=== PATIENT | female | born 1945 | race Caucasian/White ===

== ENCOUNTER 2017-11-08 01:16 | Emergency (ER) | payer MEDICARE, MEDICAID ==
[~2017-11-08] VITALS: Ht 162.6 cm; Wt 79.4 kg
[~2017-11-08 01:16] MED LIST: CHANTIX1 MG PO; DESYREL50 MG PO; LANTUS; LEVOXYL75 MCG PO; LOPRESSOR25 PO; NEXIUM20 M1 PO; NORTRIPTYLINE H25 M3 PO; NORTRIPTYLINE H75 M1 PO; NOVOLOG FLEX PEN; OXYGEN; SPIRIVA INH; SYMBICORT80 MCG/4.1 PO; XANAX 0.5 MG0.5 M1 PO; ZOCOR 20 MG TAB20 M1 PO
[2017-11-08 03:00] VITALS: BP 176/80
[2017-11-08] MEDS ORDERED: LASIX 40 MG TAB40 M2 PO (19:23)
[2017-11-08] MEDS ORDERED: PREDNISONE 20 M20 MG PO (19:24)
[2017-11-08] MEDS ORDERED: HYDROCODONE-AP1 EAC6 (19:24)
[2017-11-08] MEDS ORDERED: VENTOLIN HFA 1818 GM INH (21:19)
[2017-11-08] MEDS ORDERED: ASPIR 8181 MG PO (21:20)
[2017-11-08] MEDS ORDERED: IRON325 PO (21:21)
[2017-11-08] MEDS ORDERED: FLONASE 0.05%50 MCG SPRAY (21:23)
[2017-11-08] MEDS ORDERED: NORCO 10-325 T1 EACH PO (21:24)
[2017-11-08] MEDS ORDERED: CLARITIN10 MG PO (21:26)
[2017-11-08] MEDS ORDERED: LEVO-T88 MCG PO (21:26)
[2017-11-08] MEDS ORDERED: LUTEIN6 MG PO (21:26)
[2017-11-08] MEDS ORDERED: MAG6464 MG PO (21:28)
[2017-11-08] MEDS ORDERED: SINGULAIR 10 MG10 M1 PO (21:43)
[2017-11-08] MEDS ORDERED: ONDANSETRON HCL4 M2 PO (21:44)
[2017-11-08] MEDS ORDERED: POTASSIUM20 PO (21:45)
[2017-11-08] MEDS ORDERED: MIRAPEX ER4.5 MG PO (21:46)
[2017-11-08] MEDS ORDERED: FLOMAX0.4 MG PO (21:47)
[2017-11-08] MEDS ORDERED: ALDACTONE50 MG PO (21:47)
[2017-11-08] MEDS ORDERED: CARAFATE 1 GM TA1 G1 PO (21:49)
[2017-11-08] MEDS ORDERED: LEVEMIR SUBQ (21:56)
[2017-11-08] MEDS ORDERED: NOVOLOG100 UNIT/1 SUBQ (21:58)
[2017-11-08] MEDS ORDERED: HUMULIN N100 UNIT/1 SUBQ (22:01)
== END 2017-11-08 03:00 | disposition home or self-care (01) ==
LOC: M.ERS 01:16
DX: G89.29 Other chronic pain (principal); M54.9 Dorsalgia, unspecified; F41.9 Anxiety disorder, unspecified; I50.9 Heart failure, unspecified; J44.9 Chronic obstructive pulmonary disease, unspecified; E11.9 Type 2 diabetes mellitus without complications; K74.60 Unspecified cirrhosis of liver; Z90.49 Acquired absence of other specified parts of digestive tract; Z90.711 Acquired absence of uterus with remaining cervical stump; Z88.8 Allergy status to other drugs, medicaments and biological substances

== ENCOUNTER 2017-11-08 19:09 | Inpatient (IN) | payer MEDICARE, MEDICAID ==
[~2017-11-08] VITALS: Ht 162.6 cm; Wt 83.9 kg
[2017-11-08 19:10] VITALS: BP 156/79
[2017-11-08] MEDS ORDERED: LASIX 40 MG TAB40 M2 PO (19:23)
[2017-11-08] MEDS ORDERED: HYDROCODONE-AP1 EAC6 (19:24)
[2017-11-08] MEDS ORDERED: PREDNISONE 20 M20 MG PO (19:24)
[2017-11-08 20:06] LABS: APTT 26.1 Seconds (25.0-31.3); INR 1.1; PROTIME 10.7 Seconds (9.20-11.50)
[2017-11-08 20:32] LABS: HEMATOCRIT 35.8 % (37.0-47.0); HEMOGLOBIN 10.3 gm/dL (12.0-15.0); MCH 20.7 pg (26.0-34.0); MCHC 28.9 g/dL (28.0-37.0); MCV 71.6 fL (80.0-100.0); MPV 8.6 fl. (7.2-11.1); NUCLEATED RBCS 0 /100WBC; PLATELET COUNT* 173 thou/uL (150-400); RBC 4.99 mil/uL (4.20-5.00); RDW-CV 16.4 % (10.5-14.5); WBC 11.5 thou/uL (4.0-11.0)
[2017-11-08 20:50] LABS: BE 6.1 mmol/L (-2 to +3); HCO3 32.2 mmol/L (22.0-26.0); pH 7.393 (7.340-7.450)
[2017-11-08 20:51] LABS: PO2 56.2 mmHg (75.0-100.0)
[2017-11-08 20:55] LABS: POTASSIUM 5.8 mmol/L (3.5-5.1)
[2017-11-08 20:57] LABS: CALCIUM 8.7 mg/dL (8.5-10.1); CREATININE 2.1 mg/dL (0.6-1.3)
[2017-11-08 21:01] LABS: ALBUMIN 4.3 g/dL (3.4-5.0); MAGNESIUM 2.5 mg/dL (1.8-2.4); TOTAL BILIRUBIN 0.7 mg/dL (<0.1-1.0); TOTAL PROTEIN 7.5 g/dL (6.4-8.2); TROPONIN-I LEVEL 0.19 ng/mL (<0.06)
[2017-11-08 21:09] LABS: ABSOLUTE LYMPHOCYTES 1.4 thou/uL (0.8-5.3); ABSOLUTE MONOCYTES 0.5 thou/uL (0.0-1.2); ABSOLUTE NEUTROPHILS 9.7 thou/uL (1.6-8.1); PLATELET ESTIMATE ADEQUATE
[2017-11-08 21:14] LABS: OVALOCYTES Occasional
[2017-11-08 21:16] LABS: MICROCYTES 2+
[2017-11-08 21:19] LABS: HYPOCHROMASIA Occasional
[2017-11-08] MEDS ORDERED: VENTOLIN HFA 1818 GM INH (21:19)
[2017-11-08] MEDS ORDERED: ASPIR 8181 MG PO (21:20)
[2017-11-08] MEDS ORDERED: IRON325 PO (21:21)
[2017-11-08] MEDS ORDERED: FLONASE 0.05%50 MCG SPRAY (21:23)
[2017-11-08] MEDS ORDERED: NORCO 10-325 T1 EACH PO (21:24)
[2017-11-08] MEDS ORDERED: LEVO-T88 MCG PO (21:26)
[2017-11-08] MEDS ORDERED: CLARITIN10 MG PO (21:26)
[2017-11-08] MEDS ORDERED: LUTEIN6 MG PO (21:26)
[2017-11-08] MEDS ORDERED: MAG6464 MG PO (21:28)
[2017-11-08] MEDS ORDERED: SINGULAIR 10 MG10 M1 PO (21:43)
[2017-11-08] MEDS ORDERED: ONDANSETRON HCL4 M2 PO (21:44)
[2017-11-08] MEDS ORDERED: POTASSIUM20 PO (21:45)
[2017-11-08] MEDS ORDERED: MIRAPEX ER4.5 MG PO (21:46)
[2017-11-08] MEDS ORDERED: ALDACTONE50 MG PO (21:47)
[2017-11-08] MEDS ORDERED: FLOMAX0.4 MG PO (21:47)
[2017-11-08 21:48] LABS: URINE BILIRUBIN NEGATIVE (Negative); URINE BLOOD 3+ (Negative); URINE CLARITY SL CLOUDY; URINE COLOR YELLOW; URINE GLUCOSE-RANDOM NEGATIVE (Negative); URINE KETONES NEGATIVE (Negative); URINE NITRITE-REFLEX NEGATIVE (Negative); URINE PROTEIN 2+ (Negative); URINE UROBILINOGEN 0.2 E.U./dl (0.2-1.0)
[2017-11-08] MEDS ORDERED: CARAFATE 1 GM TA1 G1 PO (21:49)
[2017-11-08 21:52] LABS: URINE LEUKOCYTES-REFLEX 2+ (Negative)
[2017-11-08] MEDS ORDERED: LEVEMIR SUBQ (21:56)
[2017-11-08] MEDS ORDERED: NOVOLOG100 UNIT/1 SUBQ (21:58)
[2017-11-08 22:01] LABS: CASTS None Seen /LPF (None Seen)
[2017-11-08] MEDS ORDERED: HUMULIN N100 UNIT/1 SUBQ (22:01)
[2017-11-08 22:02] LABS: SQUAMOUS >10 Many /LPF (0-3)
[2017-11-08 22:03] LABS: BACTERIA-REFLEX >30 Many /HPF (None Seen); CRYSTALS None Seen /LPF (None Seen); URINE RBC None Seen /HPF (0-2); URINE WBC-REFLEX >25 Many /HPF (0-5); WBC CLUMPS Few (None Seen)
[2017-11-08 22:39] VITALS: BP 85/43
[2017-11-09 04:00] VITALS: BP 100/70
[2017-11-09 07:30] VITALS: BP 132/76
[2017-11-09 12:00] VITALS: BP 122/71
[2017-11-09 12:45] LABS: ABSOLUTE LYMPHOCYTES 0.2 thou/uL (0.8-5.3); ABSOLUTE NEUTROPHILS 9.3 thou/uL (1.6-8.1); BASOPHILS 0.4 %; HEMATOCRIT 30.8 % (37.0-47.0); HEMOGLOBIN 9.3 gm/dL (12.0-15.0); MCH 21.2 pg (26.0-34.0); MCHC 30.1 g/dL (28.0-37.0); MCV 70.4 fL (80.0-100.0); MONOCYTES 0.5 %; MPV 8.3 fl. (7.2-11.1); NUCLEATED RBCS 0 /100WBC; PLATELET COUNT* 156 thou/uL (150-400); POLYS 97.1 %; RBC 4.37 mil/uL (4.20-5.00); RDW-CV 16.3 % (10.5-14.5); WBC 9.6 thou/uL (4.0-11.0)
[2017-11-09 13:19] LABS: ALBUMIN 3.2 g/dL (3.4-5.0); CALCIUM 8.3 mg/dL (8.5-10.1); CREATININE 1.8 mg/dL (0.6-1.3); MAGNESIUM 2.4 mg/dL (1.8-2.4); TOTAL BILIRUBIN 0.3 mg/dL (<0.1-1.0); TOTAL PROTEIN 6.3 g/dL (6.4-8.2)
[2017-11-09 13:20] LABS: POTASSIUM 4.9 mmol/L (3.5-5.1)
[2017-11-09 16:16] VITALS: BP 143/62
[2017-11-09 20:00] VITALS: BP 108/72
[2017-11-09 23:00] VITALS: BP 125/56
[2017-11-10 02:11] LABS: HEMATOCRIT 32.6 % (37.0-47.0); HEMOGLOBIN 9.6 gm/dL (12.0-15.0); MCH 20.6 pg (26.0-34.0); MCHC 29.4 g/dL (28.0-37.0); MCV 69.9 fL (80.0-100.0); MPV 8.9 fl. (7.2-11.1); NUCLEATED RBCS 0 /100WBC; PLATELET COUNT* 197 thou/uL (150-400); RBC 4.66 mil/uL (4.20-5.00); RDW-CV 16.9 % (10.5-14.5); WBC 14.1 thou/uL (4.0-11.0)
[2017-11-10 02:28] LABS: ALBUMIN 3.5 g/dL (3.4-5.0); CALCIUM 8.5 mg/dL (8.5-10.1); CREATININE 1.8 mg/dL (0.6-1.3); POTASSIUM 4.5 mmol/L (3.5-5.1); TOTAL BILIRUBIN 0.3 mg/dL (<0.1-1.0); TOTAL PROTEIN 6.8 g/dL (6.4-8.2)
[2017-11-10 02:31] LABS: ABSOLUTE LYMPHOCYTES 0.7 thou/uL (0.8-5.3); ABSOLUTE NEUTROPHILS 13.4 thou/uL (1.6-8.1); ANISOCYTOSIS 1+; HYPOCHROMASIA 1+; MICROCYTES 2+; PLATELET ESTIMATE ADEQUATE; POIKILOCYTOSIS 1+; POLYCHROMASIA 1+
[2017-11-10 02:32] LABS: OVALOCYTES 1+; TEARDROPS 1+
[2017-11-10 04:00] VITALS: BP 119/66
[2017-11-10 08:00] VITALS: BP 141/68
[2017-11-10 11:30] VITALS: BP 125/54
--- NOTE | 2017-11-10 12:37 | EKG ---
[place] [address] ELECTROCARDIOGRAM REPORT Name: FRANCOIS PEÑA Room: [address] IN [facility].#: [id number] Admission: 11/08/17 Attend Phys: Piter Zavala MD Discharge: Date of : 41 Report #: [id number] THIS REPORT FOR: //name// [facility] ED Test Date: 2017-11-08 Test Time: 19:18:16 Pat Name: FRANCOIS PEÑA Department: Room: [facility] Gender: F Jai Alai Player: AMELIA Mcgovern : 1945 Requested By: Mitchell Walter Order Number: [id number] MD: Osbaldo Mack Measurements Intervals [place] Rate: 76 P: 260 LA: 143 QRS: -16 QRSD: 106 T: 94 QT: 379 QTc: 427 Interpretive Statements Ectopic atrial rhythm Multiple ventricular premature complexes Borderline left axis deviation Low voltage, extremity and precordial leads Nonspecific T abnormalities, lateral leads Baseline wander in lead(s) V2 No previous ECG available for comparison Electronically Signed On 11-10-2017 12:36:52 ACOUSTICAL ENGINEER by Osbaldo Mack [email or web address] <ELECTRONICALLY SIGNED> By: Osbaldo Mack MD, FACC 11/10/17 1236 17 17 Osbaldo Mack MD, FACC /EPI
[2017-11-10 16:36] VITALS: BP 129/56
--- NOTE | 2017-11-10 16:36 | 2DMMODE ---
[place] [address] 2 D/M-MODE ECHOCARDIOGRAM Name: FRANCOIS PEÑA Room: [address] IN [facility]#: [id number] Admission: 11/08/17 Attend Phys: Piter Zavala, Discharge: Date of : 41 Date of Service: 11/10/17 1636 Report #: [id number] THIS REPORT FOR: //name// APPROVED REPORT Study performed: 11/10/2017 14:08:15 EXAM: Comprehensive 2D, Doppler, and color-flow Echocardiogram Patient Location: In-Patient Room #: Formerly named [facility] Status: routine BSA: 1.89 HR: 56 bpm BP: 119/66 mmHg Rhythm: NSR Other Information Study Quality: Good Indications Congestive Heart Failure Elevated Troponin Resp failure 2D Dimensions LVEF(%): 69.17 (>50%) IVSd: 12.96 (7-11mm) LVOT Diam: 19.75 (18-24mm) LVDd: 46.65 mm PWd: 12.79 (7-11mm) Ascending Ao: 31.23 (22-36mm) LVDs: 28.56 (25-40mm) Aortic Root: 35.25 mm Blankenship's LVEF: 69.17 % Volumes Left Atrial Volume (Systole) LA ESV Index: 20.70 mL/m2 Aortic Valve AoV Peak Virgilio.: 1.87 m/s AO Peak Gr.: 14.03 mmHg LVOT Max P.42 mmHg AO Mean Gr.: 7.99 mmHg LVOT Mean P.04 mmHg LVOT Max V: 1.05 m/s AO V2 VTI: 45.20 cm LVOT Mean V: 0.65 m/s ART (VTI): 1.37 cm2 LVOT V1 VTI: 20.25 [place] [address] 2 D/M-MODE ECHOCARDIOGRAM Name: FRANCOIS PEÑA Room: [address] IN [facility].#: [id number] Admission: 11/08/17 Attend Phys: Piter Zavala, Discharge: Date of : 41 Date of Service: 11/10/17 1636 Report #: [id number] Mitral Valve E/A Ratio: 0.68 MV Decel. Time: 306.65 ms MV E Max Virgilio.: 0.88 m/s MV PHT: 88.93 ms MVA (PHT): 2.47 cm2 TDI E/Lateral E': 14.67 E/Medial E': 14.67 Medial E' Virgilio.: 0.06 m/s Lateral E' Virgilio.: 0.06 m/s Pulmonary Valve PV Peak Virgilio.: 1.08 m/s PV Peak Gr.: 4.63 mmHg Left Ventricle The left ventricle is normal size. There is normal LV segmental wall motion. Mild concentric left ventricular hypertrophy. Left ventricular systolic function is normal. LVEF is 65-70%. Grade I - abnormal relaxation pattern. Right Ventricle The right ventricle is normal size. The right ventricular systolic function is normal. Atria The left atrium size is normal. The right atrium size is normal. Aortic Valve Mild aortic valve sclerosis. No aortic regurgitation is present. Mild aortic stenosis. Mitral Valve The mitral valve is normal in structure. Trace mitral regurgitation. No evidence of mitral valve stenosis. Tricuspid Valve The tricuspid valve is normal in structure. There is no tricuspid valve regurgitation noted. Pulmonic Valve The pulmonary valve is normal in structure. There is no pulmonic valvular regurgitation[place] [address] 2 D/M-MODE ECHOCARDIOGRAM Name: CRISTOFEREUSEBIOLALIFRANCOIS Room: [address] IN [facility]#: [id number] Admission: 11/08/17 Attend Phys: Piter Zavala, Discharge: Date of : 41 Date of Service: 11/10/17 1636 Report #: [id number] The aortic root is normal in size. IVC is normal in size and collapses with >50% inspiration Pericardium There is no pericardial effusion. <Conclusion> The left ventricle is normal size. Mild concentric left ventricular hypertrophy. Left ventricular systolic function is normal. LVEF is 65-70%. Grade I - abnormal relaxation pattern. Mild aortic valve sclerosis. Mild aortic stenosis. <ELECTRONICALLY SIGNED> By: Osbaldo Mack MD, FACC 11/10/17 1636 1636 1636 Osbaldo Mack MD, FACC /INF
[2017-11-10 19:40] VITALS: BP 120/53
[2017-11-11] VITALS (7 sets, daily range): BP systolic 123–138; BP diastolic 67–79
[2017-11-11 01:18] LABS: ABSOLUTE LYMPHOCYTES 0.2 thou/uL (0.8-5.3); ABSOLUTE MONOCYTES 0.2 thou/uL (0.0-1.2); BASOPHILS 0.3 %; HEMATOCRIT 31.3 % (37.0-47.0); HEMOGLOBIN 9.3 gm/dL (12.0-15.0); LYMPHOCYTES 1.5 %; MCH 20.7 pg (26.0-34.0); MCHC 29.8 g/dL (28.0-37.0); MCV 69.4 fL (80.0-100.0); MONOCYTES 1.6 %; MPV 8.3 fl. (7.2-11.1); NUCLEATED RBCS 0 /100WBC; PLATELET COUNT* 176 thou/uL (150-400); POLYS 96.6 %; RBC 4.51 mil/uL (4.20-5.00); RDW-CV 16.5 % (10.5-14.5); WBC 11.4 thou/uL (4.0-11.0)
[2017-11-11 01:34] LABS: ALBUMIN 3.4 g/dL (3.4-5.0); CALCIUM 8.3 mg/dL (8.5-10.1); CREATININE 1.9 mg/dL (0.6-1.3); POTASSIUM 4.4 mmol/L (3.5-5.1); TOTAL BILIRUBIN 0.2 mg/dL (<0.1-1.0); TOTAL PROTEIN 6.6 g/dL (6.4-8.2)
[2017-11-11] MEDS ORDERED: LEVAQUIN 250 M250 MG PO (16:39)
[2017-11-11] MEDS ORDERED: NEURONTIN 300300 M1 PO (16:40)
[2017-11-11] MEDS ORDERED: TRAMADOL 50 MG50 MG PO (16:41)
[2017-11-11] MEDS ORDERED: LIDODERM1 EACH TRANSDERM (16:43)
[2017-11-11] MEDS ORDERED: VALIUM5 MG PO (16:45)
[2017-11-11] MEDS ORDERED: PREDNISONE 10 M10 MG PO (16:48)
== END 2017-11-11 17:56 | disposition home health service (06) | DRG 917 ==
LOC: M.ERS 19:09 → M.TBA-ER 20:19 → M.ERS 20:19 → M.TBA-ER 21:11 → M.2W 21:11
PROVIDERS: Family Medicine; Internal Medicine; ADMIT Internal Medicine
PROC: B24BZZ4 Ultrasonography of Heart with Aorta, Transesophageal (ICD-10-PCS; principal; 2017-11-10)
DX: T40.2X1A Poisoning by other opioids, accidental (unintentional), initial encounter (principal); I50.33 Acute on chronic diastolic (congestive) heart failure; J96.21 Acute and chronic respiratory failure with hypoxia; K25.4 Chronic or unspecified gastric ulcer with hemorrhage; R65.10 Systemic inflammatory response syndrome (SIRS) of non-infectious origin without acute organ dysfunction; J44.1 Chronic obstructive pulmonary disease with (acute) exacerbation; N17.9 Acute kidney failure, unspecified; N39.0 Urinary tract infection, site not specified; R18.8 Other ascites; F41.9 Anxiety disorder, unspecified; H35.30 Unspecified macular degeneration; E11.9 Type 2 diabetes mellitus without complications; D64.9 Anemia, unspecified; E03.9 Hypothyroidism, unspecified; G89.29 Other chronic pain; K74.60 Unspecified cirrhosis of liver; M54.5 Low back pain; J44.9 Chronic obstructive pulmonary disease, unspecified; Z90.49 Acquired absence of other specified parts of digestive tract; Z90.710 Acquired absence of both cervix and uterus; Z79.51 Long term (current) use of inhaled steroids; Z79.4 Long term (current) use of insulin; Z79.82 Long term (current) use of aspirin; Y92.89 Other specified places as the place of occurrence of the external cause; Z79.899 Other long term (current) drug therapy; Z88.1 Allergy status to other antibiotic agents; Z88.2 Allergy status to sulfonamides; Z88.8 Allergy status to other drugs, medicaments and biological substances; Z82.49 Family history of ischemic heart disease and other diseases of the circulatory system; Z83.3 Family history of diabetes mellitus

== ENCOUNTER 2018-03-17 14:23 | Inpatient (IN) | payer MEDICARE, MEDICAID ==
[~2018-03-17] VITALS: Ht 167.6 cm; Wt 90.7 kg
[~2018-03-17 14:23] MED LIST changes: +ALDACTONE50 MG PO; +ASPIR 8181 MG PO; +CARAFATE 1 GM TA1 G1 PO; +CLARITIN10 MG PO; +FLOMAX0.4 MG PO; +FLONASE 0.05%50 MCG SPRAY; +HUMULIN N100 UNIT/1 SUBQ; +HYDROCODONE-AP1 EAC6; +IRON325 PO; +LASIX 40 MG TAB40 M2 PO; +LEVAQUIN 250 M250 MG PO; +LEVEMIR SUBQ; +LEVO-T88 MCG PO; +LIDODERM1 EACH TRANSDERM; +LUTEIN6 MG PO; +MAG6464 MG PO; +MIRAPEX ER4.5 MG PO; +NEURONTIN 300300 M1 PO; +NORCO 10-325 T1 EACH PO; +NOVOLOG100 UNIT/1 SUBQ; +ONDANSETRON HCL4 M2 PO; +POTASSIUM20 PO; +PREDNISONE 10 M10 MG PO; +PREDNISONE 20 M20 MG PO; +SINGULAIR 10 MG10 M1 PO; +TRAMADOL 50 MG50 MG PO; +VALIUM5 MG PO; +VENTOLIN HFA 1818 GM INH
[2018-03-17 14:24] VITALS: BP 142/71
[2018-03-17] MEDS ORDERED: PREDNISONE 20 M20 MG PO (14:40)
[2018-03-17] MEDS ORDERED: MS CONTIN15 MG PO (14:41)
[2018-03-17] MEDS ORDERED: CONSTULOSE10 GM/15 M PO (14:42)
[2018-03-17] MEDS ORDERED: CYMBALTA30 MG PO (14:42)
[2018-03-17] MEDS ORDERED: POTASSIUM20 PO (14:43)
[2018-03-17] MEDS ORDERED: MAG6464 MG PO (14:43)
[2018-03-17 14:48] LABS: HEMOGLOBIN 10.5 gm/dL (12.0-15.0); MCH 19.1 pg (26.0-34.0); MCHC 28.3 g/dL (28.0-37.0); MCV 67.4 fL (80.0-100.0); MPV 7.7 fl. (7.2-11.1); NUCLEATED RBCS 0 /100WBC; PLATELET COUNT* 257 thou/uL (150-400); RBC 5.49 mil/uL (4.20-5.00); RDW-CV 17.7 % (10.5-14.5); WBC 9.4 thou/uL (4.0-11.0)
[2018-03-17 15:07] LABS: APTT 36.4 Seconds (25.0-31.3); INR 1.3; PROTIME 12.2 Seconds (9.20-11.50)
[2018-03-17 15:16] LABS: CALCIUM 9.4 mg/dL (8.5-10.1); POTASSIUM 5.1 mmol/L (3.5-5.1)
[2018-03-17 15:27] LABS: ALBUMIN 3.2 g/dL (3.4-5.0); TOTAL BILIRUBIN 0.5 mg/dL (<0.1-1.0); TROPONIN-I LEVEL 0.22 ng/mL (<0.06)
--- NOTE | 2018-03-17 15:34 | NUR ---
JANNETTE NOTIFIED UPON PT RETURN FROM CT. PT CONNECTED TO MONIOR AND O2
[2018-03-17 16:08] LABS: ABSOLUTE LYMPHOCYTES 0.6 thou/uL (0.8-5.3); ABSOLUTE MONOCYTES 0.2 thou/uL (0.0-1.2); ABSOLUTE NEUTROPHILS 8.6 thou/uL (1.6-8.1); ANISOCYTOSIS 1+; METAMYELOCYTES 1 %; MYELOCYTES 1 %; PLATELET ESTIMATE ADEQUATE; POLYCHROMASIA 1+
[2018-03-17 16:09] LABS: MICROCYTES 3+; TEARDROPS 1+
[2018-03-17 16:10] LABS: SCHISTOCYTES Occasional
--- NOTE | 2018-03-17 16:39 | EKG ---
[place] [address] ELECTROCARDIOGRAM REPORT Name: FRANCOIS PEÑA Room: [facility]#: [id number] Admission: 03/17/18 Attend Phys: Discharge: Date of : 41 Report #: [id number] THIS REPORT FOR: //name// [facility] ED Test Date: 2018-03-17 Test Time: 14:33:04 Pat Name: FRANCOIS PEÑA Department: Room: Gender: F Structural Mill Supervisor: Shaniqua AMEZCUA : 1945 Requested By: Mitchell Walter Order Number: [id number] MD: Kadeem Carmen Measurements Intervals [place] Rate: 79 P: -75 WV: 118 QRS: -29 QRSD: 107 T: 69 QT: 387 QTc: 444 Interpretive Statements Ectopic atrial rhythm Borderline short WV interval Borderline left axis deviation Low voltage, extremity leads Compared to ECG 11/08/2017 19:18:16 Ventricular premature complex(es) no longer present Electronically Signed On 03-17-2018 16:39:00 CDT by Kadeem Carmen [email or web address] <ELECTRONICALLY SIGNED> By: Kadeem Carmen MD, [facility] 03/17/18 1639 1433 1433 Kadeem Carmen MD, [facility] /EPI
[2018-03-17 18:24] VITALS: BP 125/71
--- NOTE | 2018-03-17 18:43 | NUR ---
VSS, ASSUMED CARE FROM ER, PT HAS SKIN TEARS ALL OVER HER BODY, SHE IS ON 5L NC AND IS A&O3, PT IS INCONT OF BOWL, PT STATES PAIN IN HER LEFT HIP AND BACK, STORM IS IN PLACE AND DRAINING, WILL FOLLOW WITH PLAN OF CARE.
[2018-03-17 18:49] LABS: URINE BILIRUBIN NEGATIVE (Negative); URINE BLOOD NEGATIVE (Negative); URINE CLARITY CLEAR; URINE COLOR YELLOW; URINE GLUCOSE-RANDOM NEGATIVE (Negative); URINE KETONES NEGATIVE (Negative); URINE LEUKOCYTES-REFLEX NEGATIVE (Negative); URINE NITRITE-REFLEX NEGATIVE (Negative); URINE PROTEIN TRACE (Negative); URINE UROBILINOGEN 0.2 E.U./dl (0.2-1.0)
[2018-03-17 19:06] VITALS: BP 142/78
[2018-03-17 20:00] VITALS: BP 147/92
[2018-03-17] MEDS ORDERED: NOVOLOG100 UNIT/1 SUBQ (20:02)
[2018-03-17] MEDS ORDERED: ACIDOPHILUS1 EAC3 PO (20:13)
[2018-03-17] MEDS ORDERED: LASIX 20 MG TAB20 MG PO (20:19)
[2018-03-17] MEDS ORDERED: DOXYCYCLINE 10100 MG PO (20:24)
[2018-03-17] MEDS ORDERED: AUGMENTIN 875-1 EACH PO (20:26)
[2018-03-17] MEDS ORDERED: SALONPAS PATCH1 EAC1 TOP (20:28)
[2018-03-17] MEDS ORDERED: DUO INH (20:37)
[2018-03-17] MEDS ORDERED: GUAIFENESIN/COD10 M1 PO (20:39)
[2018-03-17] MEDS ORDERED: MSL20MG/ML SUBLING (20:42)
[2018-03-17] MEDS ORDERED: MORPHINE S10 MG/5 M2 SUBLING (20:42)
[2018-03-17] MEDS ORDERED: ACEPHEN650 M1 RECTAL (20:50)
[2018-03-17] MEDS ORDERED: TYLENOL325 MG PO ×2 (20:51→21:03)
[2018-03-17] MEDS ORDERED: BISACODYL SUPP10 MG RECTAL (21:04)
[2018-03-17] MEDS ORDERED: CAL-GEST200 MG PO (21:05)
[2018-03-17] MEDS ORDERED: HYOSCYAMINE0.125 M2 SUBLING (21:08)
[2018-03-17] MEDS ORDERED: LOPERAMIDE 2 MG2 M1 PO (21:09)
[2018-03-17] MEDS ORDERED: MILK OF MA2400 MG/10 PO (21:10)
[2018-03-17] MEDS ORDERED: ONDANSETRON HCL4 M2 PO (21:12)
[2018-03-17] MEDS ORDERED: SIMETHICON CHEW80 M1 PO (21:13)
[2018-03-17] MEDS ORDERED: XANAX 0.25 MG0.25 MG PO (21:14)
[2018-03-18] VITALS: BP 137/63
--- NOTE | 2018-03-18 02:56 | NUR ---
PT LETHARGIC AROUSES EASILY. CONFUSED TO PLACE AND TIME. SPEAKS IN WHISPERED TONE. PT TAKING MS CONTIN SCHEDULED AND HYDROCODONE PRN FOR L HIP PAIN. PT HAS VARIOUS SKIN TEARS COVERED IN STERI STRIPS AND DOCUMENTED WITH PICTURES. NO REDNESS OR BREAKDOWN ON BUTTOCKS. TURNING TO Q 2HRS TO BACK AND L SIDE. TELEMETRY SHOWS SR OCCASIONAL PVC. TAKES PILLS WITH PUDDING. LIKES COLD WATER TO DRINK. WILL CONTINUE TO MONITOR.
[2018-03-18 04:00] VITALS: BP 126/79
[2018-03-18 08:00] VITALS: BP 138/77
--- NOTE | 2018-03-18 08:21 | NUR ---
pt resting in bed, appears alert o x 2-3 , weak, able to states is in hospital, states fell out of chair prior to admission,.. She states had been under hospice care at home, secondary to COPD, denies chest pain, denies SOB at rest , on O2 at 5l prer NC, sats 94 %, turns, has L hip fx, reporst alfredo pain control at this time
[2018-03-18 12:00] VITALS: BP 123/73
--- NOTE | 2018-03-18 12:52 | NUR ---
MET WITH PT AND SISTER/SINGH TO DISCUSS HOME SITUATION/DC PLANNING. PT DROWSY, ALL INFO FROM SINGH. SHE IS DPOA. 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 SPOKE WITH KARLA/LARY, JENNIFERY WILL ACCEPT BACK [place]. KARLA STATED PT FELL 'OUT OF BED' AND WAS ADMITTED WTIH HIP FX. IS ON HOSPICE FOR COPD. PT IS BED OR W/C BOUND MOSTLY, WEARS O2 AND IS DEPENDENT WITH ADLS. PLAN IS FOR HER TO RETURN TO [facility] [place]PICE. WILL FOLLOW. [facility] [phone] FAX [phone] [facility] [phone]
[2018-03-18 15:47] VITALS: BP 120/84
--- NOTE | 2018-03-18 18:11 | NUR ---
Pt resting in bed, remains o x 2-3 forgetful, can make needs known. has FX L hip, seen by ORTHO, pt is NOT A CANDIDATE for SURGERY. Reports adeq pain relief scheduled and PRN morphine and PRN. PLan on returning to HOSPICE CARE, pt is on O2 at 5l per NC, has end statge COPD. turned q 2 hours, her sister visited most of day
[2018-03-18 20:00] VITALS: BP 122/78
[2018-03-19] VITALS: BP 137/85
--- NOTE | 2018-03-19 01:08 | NUR ---
PT SLEEPY AROUSES EASILY. SCHEDULED AND PRN PAIN MEDICATION GIVEN. TURNING Q 2 HRS. TELEMETRY SHOWS SR PVC. STORM WITH CLEAR YELLOW. TAKES PILLS IN APPLE SAUCE OR PUDDING. L HAND L ELBOW L LEG WITH SKIN TEARS, BRUSING AND STERI STRIPS. DORSAL ASPECT OF R FOOT WITH WOUND. NON BOARDERED DRSG WITH KERLEX WRAPPED. WILL CONTINUE TO MONITOR.
[2018-03-19 04:00] VITALS: BP 138/74
[2018-03-19 08:00] VITALS: BP 146/68
[2018-03-19 13:03] VITALS: BP 82/44
[2018-03-19 13:05] VITALS: BP 86/39
== END 2018-03-19 15:00 | disposition hospice, home (50) | DRG 964 ==
LOC: M.ERS 14:23 → M.TBA-ER 16:45 → M.2W 18:26
PROVIDERS: Family Medicine; ADMIT Internal Medicine
DX: S72.142A Displaced intertrochanteric fracture of left femur, initial encounter for closed fracture (principal); S32.592A Other specified fracture of left pubis, initial encounter for closed fracture; J44.1 Chronic obstructive pulmonary disease with (acute) exacerbation; N18.4 Chronic kidney disease, stage 4 (severe); I13.0 Hypertensive heart and chronic kidney disease with heart failure and stage 1 through stage 4 chronic kidney disease, or unspecified chronic kidney disease; I50.42 Chronic combined systolic (congestive) and diastolic (congestive) heart failure; N81.4 Uterovaginal prolapse, unspecified; Z66 Do not resuscitate; E11.22 Type 2 diabetes mellitus with diabetic chronic kidney disease; K74.60 Unspecified cirrhosis of liver; G20 Parkinson's disease; W06.XXXA Fall from bed, initial encounter; F41.9 Anxiety disorder, unspecified; M81.8 Other osteoporosis without current pathological fracture; Z79.899 Other long term (current) drug therapy; Z79.82 Long term (current) use of aspirin; Z79.1 Long term (current) use of non-steroidal anti-inflammatories (NSAID); Y93.89 Activity, other specified; Y92.122 Bedroom in nursing home as the place of occurrence of the external cause; Z98.51 Tubal ligation status; Y99.8 Other external cause status; Z90.710 Acquired absence of both cervix and uterus; Z88.2 Allergy status to sulfonamides; Z88.8 Allergy status to other drugs, medicaments and biological substances; Z79.891 Long term (current) use of opiate analgesic; Z87.11 Personal history of peptic ulcer disease; Z83.3 Family history of diabetes mellitus; Z82.49 Family history of ischemic heart disease and other diseases of the circulatory system; Z87.891 Personal history of nicotine dependence